=== PATIENT | female | born 1995 | race Two or more races ===

== ENCOUNTER 2023-06-29 18:27 | Emergency (ER) | payer BC, OTHER ==
[~2023-06-29] VITALS: Ht 182.9 cm; Wt 64.9 kg
[2023-06-29] MEDS ORDERED: IBUPROFEN 600 MG TABLET PO ONE (21:00)
[2023-06-29] MEDS ORDERED: TDAP [DIPH/PERTUSSIS/TET] 0.5 ML VIAL IM ONE ×2 (21:00→21:12)
[2023-06-29] MEDS ORDERED: IBUPROFEN 600 MG TABLET ONE (21:11)
[2023-06-29] MEDS ORDERED: IBUP-1955 PO (22:25)
[2023-06-30 00:20] VITALS: BP 118/70; TEMP 98.7; O2SAT 100
== END 2023-06-30 00:20 | disposition home or self-care (01) ==
LOC: ER 18:50
DX: S01.21XA Laceration without foreign body of nose, initial encounter (principal); W20.8XXA Other cause of strike by thrown, projected or falling object, initial encounter; Y93.89 Activity, other specified; Y92.89 Other specified places as the place of occurrence of the external cause; Y99.8 Other external cause status
CPT/HCPCS: 70160-TC; 90715